=== PATIENT | female | born 2000 | race Hispanic/Latino ===

== ENCOUNTER 2022-11-11 23:22 | Emergency (ER) | payer MEDICAID | END 2022-11-12 00:37 | disposition home or self-care (01) | LOC: ERS 23:22 | DX: F41.1 Generalized anxiety disorder (principal) | CPT/HCPCS: 93005 ==

== ENCOUNTER 2023-11-22 19:29 | Observation (INO) | payer MEDICAID, SELFPAY ==
[2023-11-23 07:27] VITALS: BMI 21.2
[2023-11-24 10:03] VITALS: TEMP 97.4
[2023-11-24 10:06] VITALS: BP 104/66
== END 2023-11-24 14:19 | disposition home or self-care (01) ==
LOC: ERS 19:29 → 2SW 11-23 03:18
PROVIDERS: ADMIT Student in an Organized Health Care Education/Training Program; ATTEND Internal Medicine Critical Care Medicine
PROC: B246ZZZ Ultrasonography of Right and Left Heart (ICD-10-PCS; principal; 2023-11-23)
DX: U07.1 COVID-19 (principal); R00.0 Tachycardia, unspecified; I08.1 Rheumatic disorders of both mitral and tricuspid valves; E87.6 Hypokalemia; E87.1 Hypo-osmolality and hyponatremia; F41.9 Anxiety disorder, unspecified; F32.A Depression, unspecified; M79.661 Pain in right lower leg; M79.662 Pain in left lower leg; Z88.1 Allergy status to other antibiotic agents
CPT/HCPCS: 36415; 70450; 71045; 71275; 74176; 80048; 80053; 80306; 80307; 81001; 82550; 82805; 82945; 83036; 83605; 83690; 83735; 84132; 84145; 84157; 84443; 84484; 84703; 85025; 87040; 87070; 87205; 89051; 93005; 93306; 93970; 96375; 96376; G0378; J0696; J1200; J1885; J2250; J2765; J2920; J3370-JW; J3475; J3490; J7120; J8499; Q9967; S0028